=== PATIENT | female | born 1965 | race Caucasian/White ===

== ENCOUNTER 2025-02-21 16:46 | Emergency (ER) | payer OTHER ==
[~2025-02-21] VITALS: Ht 170.2 cm; Wt 72.7 kg
[2025-02-21 16:55] VITALS: BP 152/79; TEMP 98.2; O2SAT 98
[2025-02-21] MEDS ORDERED: IBUP-1490 PO (17:45)
== END 2025-02-21 17:50 | disposition home or self-care (01) ==
LOC: ER 16:51
DX: S60.222A Contusion of left hand, initial encounter (principal); W22.8XXA Striking against or struck by other objects, initial encounter; Y93.89 Activity, other specified; Y92.89 Other specified places as the place of occurrence of the external cause; Y99.8 Other external cause status
CPT/HCPCS: 73130-TC